=== PATIENT | female | born 1995 | race Caucasian/White ===

== ENCOUNTER 2024-10-17 12:14 | Inpatient (IN) | payer SELFPAY ==
[2024-10-17 12:22] VITALS: BP 151/83; PULSE 114; TEMP 36.8; O2SAT 99; BMI 33.0
--- OUTSIDE RECORDS SUMMARY | 2024-10-17 12:22 | XMS_ITS | Clinical Summary ---
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
--- OUTSIDE RECORDS SUMMARY | 2024-10-17 12:22 | XMS_ITS | Clinical Summary ---
[facility] Address [address] [address] Phone Care Team Providers Care Ruby Developer Name Role Phone Deepti Castle MD Primary Care Provider [phone] Allergies No known active allergies Medications multivitamin (DAILY-BRAXTON) tablet Take 1 Tab by mouth daily. Active SODIUM CL/POTASSIUM CHLORIDE (BUFFERED SALT ORAL) Take 1 Tab by mouth daily. Active acetaminophen (TYLENOL) 500 mg tablet Take 1,000 mg by mouth every 6 hours as needed. Active ibuprofen (MOTRIN) 200 mg tablet Take 400 mg by mouth every 6 hours as needed for Pain, Mild. Active azithromycin (ZITHROMAX) 500 mg tablet Take 1 Tab by mouth daily. 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 Pulse 83 02/25/2014 10:00 AM CNC SET UP OPERATOR Temperature 36.7 C (98.1 F) 02/25/2014 10:38 AM CNC SET UP OPERATOR Respiratory Rate 20 02/25/2014 11:20 AM CNC SET UP OPERATOR Oxygen Saturation 100% 02/25/2014 11:20 AM CNC SET UP OPERATOR Inhaled Oxygen Concentration - - Weight 49.4 kg (109 lb) 02/25/2014 8:58 AM CNC SET UP OPERATOR Height 160 cm (5' 3 ) 02/25/2014 8:58 AM CNC SET UP OPERATOR Body Mass Index 19.31 02/25/2014 8:58 AM CNC SET UP OPERATOR Plan of Treatment Health Maintenance Due Date Last Done Comments HPV VACCINES (1 - 3-dose series) 2012 DTAP/TDAP/TD VACCINES (1 - Tdap) 2016 HEPATITIS B VACCINES (1 of 3 - 19+ 3-dose series) 08/2016 CERVICAL CANCER SCREENING 2018 HPV/Cotest (21-29) 2018 PAP SMEAR 2018 INFLUENZA VACCINE (#1) 2024 Insurance [address] [place] [id number] [place] Care Teams Ruby Developer Relationship Specialty Start Date End Date Deepti Caslte MD [address] [place] [address] PCP - General Family Practice 02/25/14
[2024-10-17 12:32] LABS: Hematocrit 44.1 % (36-47); Hemoglobin 14.60 g/dL (11.27-16.99); Mean Corpuscular HGB Conc 33.1 g/dL (30-55); Mean Corpuscular Hemoglobin 29.5 pg (27-33); Mean Corpuscular Volume 89.1 fl (85-98); Nucleated Red Blood Cells % 0 %; Platelet Count 308 10^3/cmm (157-399); Red Blood Count 4.95 10^6/uL (3.85-5.65); White Blood Count 9.49 10^3/uL (3.29-11.43)
--- NOTE | 2024-10-17 12:42 | ED.C_ITS ---
HPI - Psych 2 General: Chief Complaint: Psychiatric Symptoms Stated Complaint: MHE Time Seen by Provider: 10/17/24 12:15 Source: patient Mode of arrival: ambulatory Limitations: no limitations History of Present Illness: 29-year-old female states that she has a history of bipolar disorder states she recently moved here has been feeling extremely paranoid states she been feeling people are out to get her she is going to get ambulation. She states she has been taking her home meds she denies SI or HI denies any worse improving factors. She states she is feels like she needs to be admitted to get some help. Related Data Allergies Allergy/AdvReac Type Severity Reaction Status Date / Time acetaminophen (From Percocet) Allergy Unknown Verified 10/17/24 12:30 oxycodone (From Percocet) Allergy Unknown Verified 10/17/24 12:30 Review of Systems 2 Const: Denies: fever(s), chills, body aches or change in appetite ENMT: Denies: throat pain or dental pain Card: Denies: chest pain Resp: Denies: dyspnea GI: Denies: abdominal pain, nausea, vomiting or diarrhea Musc: Denies: neck pain or back pain Skin/Breast: Denies: rash Neuro: Denies: headache(s) Psych: Reports: anxiety and paranoia Physical Exam 2 Const: COMMON NORMALS: no acute distress, patient oriented x3 and healthy appearing HENMT: COMMON NORMALS: normocephalic and atraumatic HEAD & SCALP: n ormocephalic and atraumatic Eye: COMMON NORMALS: conjunctivae normal CONJUNCTIVA: Yes conjunctivae normal Neck/C-Spine: COMMON NORMALS: full ROM and supple Chest: COMMONS NORMALS: normal inspection of the chest Resp: COMMON NORMALS: normal respiratory effort Cardio: COMMON NORMALS: regular rate RATE: regular rate Extremity: COMMON NORMALS: normal to inspection and full ROM Neuro: COMMON NORMALS: patient oriented x3, moves all extremities and no focal motor deficits Psych: COMMON NORMALS: mental status grossly normal, Normal thought process present and cooperative MOOD & AFFECT: Yes anxious THOUGHT PROCESS: Normal thought process present Skin: COMMON NORMALS: no rashes or lesions noted and no wounds GENERAL SKIN EXAM: no rashes or lesions noted Course 2 Vital Signs: Vital signs: Vital Signs Temperature 98.2 F 10/17/24 12:22 Pulse Rate 114 H 10/17/24 12:22 Blood Pressure 151/83 10/17/24 12:22 Pulse Oximetry 99 10/17/24 12:22 Oxygen Delivery Me thod Room Air 10/17/24 12:22 MDM - Psych Medical Decision Making Patient presents for paranoia. She is not suicidal or homicidal patient voluntarily wants to be admitted due to her paranoia I spoke to psychiatry she is medically cleared will admit at this time. Medical Records I reviewed the patient's medical records. Lab Data I reviewed the patient's lab results. 10/17/24 12:15 10/17/24 12:15 Laboratory Results WBC 9.49 10^3/uL (3.29-11.43) 10/17/24 12:15 RBC 4.95 10^6/uL (3.85-5.65) 10/17/24 12:15 Hgb 14.60 g/dL (11.27-16.99) 10/17/24 12:15 Hct 44.1 % (36-47) 10/17/24 12:15 MCV 89.1 fl (85-98) 10/17/24 12:15 MCH 29.5 pg (27-33) 10/17/24 12:15 MCHC 33.1 g/dL (30-55) 10/17/24 12:15 RDW 11.6 % (12.1-15.1) L 10/17/24 12:15 Plt Count 308 10^3/cmm (157-399) 10/17/24 12:15 MPV 10.4 fL (7.4-10.4) 10/17/24 12:15 Neut % (Auto) 72.1 % 10/17/24 12:15 Lymph % (Auto) 23.0 % 10/17/24 12:15 [place] % (Auto) 4.3 % 10/17/24 12:15 Eos % (Auto) 0.1 % 10/17/24 12:15 Baso % (Auto) 0.3 % 10/17/24 12:15 Neut # (Auto) 6.84 10^3/uL (1.8-7.7) 10/17/24 12:15 Lymph # (Auto) 2.2 10^3/uL (0.8-4.8) 10/17/24 12:15 [place] # (Auto) 0.4 10^3/uL (0.2-0.9) 10/17/24 12:15 Eos # (Auto) 0.0 10^3/uL (0.0-0.8) 10/17/24 12:15 Baso # (Auto) 0.0 10^3/uL (0.0-0.1) 10/17/24 12:15 Nucleated RBC % (auto) 0 % 10/17/24 12:15 Nucleated RBCs # 0.0 /100WBC 10/17/24 12:15 Sodium 134 mmol/L (136-145) L 10/17/24 12:15 Potassium 4.2 mmol/L (3.5-5.1) 10/17/24 12:15 Chloride 98 mmol/L (98-107) 10/17/24 12:15 Carbon Dioxide 19 mmol/L (22-29) L 10/17/24 12:15 Anion Gap 21.2 (5-19) H 10/17/24 12:15 BUN 6 mg/dL (6-20) 10/17/24 12:15 Creatinine 0.6 mg/dL (0.5-0.9) 10/17/24 12:15 GFR Calculation 119.9 mL/min (90-130) 10/17/24 12:15 Glucose 95 mg/dL (65-115) 10/17/24 12:15 Calculated Osmolality 275 mOsm/kg (285-295) L 10/17/24 12:15 Calcium 10.3 mg/dL (8.5-10.5) 10/17/24 12:15 Total Bilirubin 0.8 mg/dL (0.15-1.2) 10/17/24 12:15 AST 18 U/L (0-32) 10/17/24 12:15 ALT 15 U/L (0-33) 10/17/24 12:15 Alkaline Phosphatase 60 U/L (35-105) 10/17/24 12:15 Total Protein 8.6 g/dL (6.6-8.7) 10/17/24 12:15 Albumin 5.1 g/dL (3.5-5.2) 10/17/24 12:15 Globulin 3.5 g/dL (1.3-4.6) 10/17/24 12:15 HCG, Qual Negative (Negative) 10/17/24 12:50 Salicylates < 0.3 mg/dL (3-10) L 10/17/24 12:15 Acetaminophen < 5.0 ug/mL (10-30) L 10/17/24 12:15 Ethyl Alcohol < 10 mg/dL (0-10) 10/17/24 12:15 No radiology studies performed this visit Discharge Plan Discharge Patient Disposition: Admitted As Inpatient Clinical Impression: Paranoia Condition: Stable Coding Level of Care Code ED Technical Services Librarian for Jasmyn Castañeda
[2024-10-17 12:54] LABS: Alanine Aminotransferase 15 U/L (0-33); Albumin Level 5.1 g/dL (3.5-5.2); Alkaline Phosphatase 60 U/L (35-105); Anion Gap 21.2 (5-19); Aspartate Amino Transferase 18 U/L (0-32); Blood Urea Nitrogen 6 mg/dL (6-20); Calcium 10.3 mg/dL (8.5-10.5); Carbon Dioxide 19 mmol/L (22-29); Chloride 98 mmol/L (98-107); Creatinine Clr Calc Pharmacy 134.3624; Globulin 3.5 g/dL (1.3-4.6); Glucose 95 mg/dL (65-115); Osmolality Calculated 275 mOsm/kg (285-295); Potassium 4.2 mmol/L (3.5-5.1); Sodium 134 mmol/L (136-145); Total Protein 8.6 g/dL (6.6-8.7)
[2024-10-17 12:58] LABS: HCG Qualitative Urine. Negative (Negative)
[2024-10-17 12:58] LABS: Acetaminophen < 5.0 ug/mL (10-30); Alcohol Level < 10 mg/dL (0-10); Salicylate < 0.3 mg/dL (3-10)
[2024-10-17 13:25] VITALS: RESP 18; O2SAT 98
[2024-10-17 13:44] LABS: PCP Screen Urine Negative (Negative)
--- NOTE | 2024-10-17 13:48 | PC.PHAR ---
Medication information obtained by calling pts' pharmacy in [place]. [facility] [address], [place] [phone]. Pt states she took her medications today.
[2024-10-17 14:32] VITALS: BP 145/82; PULSE 121; RESP 16; TEMP 37.2; O2SAT 100
[2024-10-17 14:36] VITALS: BP 148/73; PULSE 103; O2SAT 98
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
--- NOTE | 2024-10-17 16:06 | PC.NURSE ---
Pt.'s friend Kathi came to visit today to visit and explained the living situation better. Pt. was living in [place] with her mother and sister sleeping on the couch. Kathi is a friend that went to school with pt. and they had been talking and pt. was going to move in with Kathi who lives in [facility]. Kathi and Pt. met on 10/16/24 in [place], [place] they went back to Kathi's home in [facility] when the friend Kathi realized the situation of pt.'s mental health and took pt. to the crisis center. The friend stated pt. had a recent medication change. The Seroquel was 25mg daily, but was changed to 100mg TID.
[2024-10-17 20:40] VITALS: BP 133/87; PULSE 103; RESP 18; O2SAT 94
[2024-10-18 06:00] VITALS: RESP 16
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
--- NOTE | 2024-10-18 07:24 | PC.NURSE ---
BEHAVIOR PATIENT HAS BEEN VERY TEARFUL THIS NIGHT. STATED SHE WAS HOMESICK, AND WANTED TO GO HOME. PATIENT WAS REASSURED THAT SOON THE DOCTOR THOUGHT SHE WOULD BE SAFE TO BE DISCHARGED, HE WOULD DISCHARGE HER. PATIENT THEN WAS ABLE TO SLEEP WELL AFTER TALKING TO STAFF.
[2024-10-18 14:00] VITALS: BP 99/63; PULSE 74; RESP 18; TEMP 37.3; O2SAT 96
[2024-10-18 19:59] VITALS: BP 113/75; PULSE 78; RESP 18; TEMP 37.6; O2SAT 95
--- NOTE | 2024-10-19 05:28 | PC.NURSE ---
REST PATIENT WAS UP ENTER-ACTING AND WATCHING TV WITH OTHER PATIENTS IN THE DAYROOM TILL AROUND 2200 LAST EVENING. SHE THEN RESTED VERY WELL THE REST OF THE NIGHT.
[2024-10-19 06:00] VITALS: BP 131/91; PULSE 84; RESP 17; TEMP 37; O2SAT 98
--- NOTE | 2024-10-19 11:55 | PC.NURSE ---
Pt.'s mother called gave information saying pt. was DX in the past wit compounded post traumatic stress syndrome and bi-polar, also said she had been in [facility] and [facility] in [place] for [facility] tx.
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
[2024-10-19 14:00] VITALS: BP 120/79; PULSE 119; RESP 17; TEMP 37; O2SAT 97
[2024-10-19 19:36] VITALS: BP 114/73; PULSE 100; RESP 18; TEMP 36.9; O2SAT 96
[2024-10-20 06:00] VITALS: RESP 16
[2024-10-20] MEDS: paliperidone ER 6 mg Tablet PO (08:17)
[2024-10-20 13:57] VITALS: BP 127/87; PULSE 107; RESP 16; TEMP 37.1; O2SAT 96
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
[2024-10-20] MEDS: blistex lip oint 7 gm Tube 1 APPLIC TOPICAL (18:20)
--- NOTE | 2024-10-20 19:21 | PC.NURSE ---
10/20/24 Alina Calderon et another patient were reminded that they were too close together et needed to separate some. Another staff member reported having to remind them during group as well.
[2024-10-20 20:19] VITALS: BP 125/89; PULSE 95; RESP 18; O2SAT 96
[2024-10-21 06:00] VITALS: BP 128/89; PULSE 116; RESP 18; TEMP 36.8; O2SAT 98
[2024-10-21] MEDS: blistex lip oint 7 gm Tube 1 APPLIC TOPICAL (07:59)
[2024-10-21] MEDS: paliperidone ER 6 mg Tablet PO (08:06)
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
[2024-10-21 14:00] VITALS: BP 138/91; PULSE 123; RESP 16; TEMP 36.3; O2SAT 96
[2024-10-21 20:12] VITALS: BP 126/90; PULSE 109; RESP 18; TEMP 36.8; O2SAT 96
[2024-10-22 06:00] VITALS: BP 133/89; PULSE 128; RESP 19; TEMP 37.1; O2SAT 98
[2024-10-22] MEDS: paliperidone ER 6 mg Tablet PO (08:23)
[2024-10-22] MEDS: blistex lip oint 7 gm Tube 1 APPLIC TOPICAL (10:48)
[2024-10-22 14:00] VITALS: BP 120/74; PULSE 109; RESP 16; TEMP 36.8; O2SAT 95
--- NOTE | 2024-10-22 17:19 | P.NPUPN_ITS ---
Mental Status Exam 2 [facility] Comments: Patient presented today reporting that she is feeling better overall. Staff reports she is being less isolative and engaging which was noted and direct observation as well. She endorsed feeling optimistic about a plan of her likely being discharged by Thursday. She denied any side effects to her medication. Vitals/I&O/Wt Last Vital Signs Temp 98.2 F 10/22/24 14:00 Pulse 109 H 10/22/24 14:00 Resp 16 10/22/24 14:00 BP 120/74 10/22/24 14:00 Pulse Ox 95 10/22/24 14:00 O2 Del Method Room Air 10/22/24 14:00 Data NPU 10/17/24 12:15 10/17/24 12:15 A&P Assessment and plan 1. Paranoia: 2. Major depressive disorder, recurrent: 3. PTSD (post-traumatic stress disorder): 4. Borderline personality disorder: 5. Cannabis use disorder: 6. CAYETANO (generalized anxiety disorder): Plan: This is a 29-year-old white female with a long history of mental health treatment with multiple past hospitalizations who presents having recently moved to the area with a friend after being homeless and having a psychiatric breakdown leading to her being admitted on a 96-hour hold. Plan Initiated Invega 3 mg today with plan to increase to 6 mg tomorrow if tolerated. Will monitor response and adjust dosage as needed on a daily basis. 1. Continue current medication. Added Invega 3 mg p.o. daily. Increased to 6 mg. 2. Continue every 15 minute checks. 3. Encourage individual, group and milieu therapies. 4. Encourage sober living after discharge to the highest level of care to which she is willing to commit. 5. Obtain collateral information. 6. Evaluate against a backdrop of the 96-hour hold. PDMP PDMP Reviewed: Not Reviewed Involuntary Hold Information 2 Hold Status: Date/Time Hold Expires: voluntary Attestations NPU 2 Medical Necessity Statement*: Inpatient hospitalization is medically necessary and the clinically appropriate intervention at this time. We will monitor/initiate medications and make changes as indicated. Likely length of stay 1-3 days. Coding Level of Care Code Acute Code for [facility] Diagnoses Paranoia F22 Major depressive disorder, recurrent F33.9 PTSD (post-traumatic stress disorder) F43.10 Borderline personality disorder F60.3 Cannabis use disorder F12.90 CAYETANO (generalized anxiety disorder) F41.1
[2024-10-22 19:58] VITALS: BP 108/70; PULSE 127; RESP 18; O2SAT 96
[2024-10-23 06:00] VITALS: BP 155/89; PULSE 111; RESP 18; TEMP 36.6; O2SAT 98; BMI 32.5
[2024-10-23] MEDS: paliperidone ER 6 mg Tablet PO (08:21)
[2024-10-23 14:00] VITALS: BP 117/79; PULSE 126; RESP 16; TEMP 36.8; O2SAT 95
[2024-10-23] MEDS: blistex lip oint 7 gm Tube 1 APPLIC TOPICAL (14:08)
--- NOTE | 2024-10-23 17:23 | P.NPUPN_ITS ---
Subjective NPU 2 Subjective: Patient presented today reporting that things are going better. We discussed the likelihood of discharge by Thursday and she is going to explore how she is feeling to see if tomorrow would be better than Thursday as a discharge plan. Otherwise she reports feeling much better than the medication has been really helpful and she is really excited to have something that works as this has. She denied any side effects of medication and we discussed her and Dr. Germain making a decision about discharge after the meet tomorrow. Mental Status Exam 2 MSE Comments: This is an overweight versus obese white female in hospital scrubs with limited grooming and eye contact. No abnormal movements except for mild psychomotor retardation. Cooperative with exam in mild distress. Speech was more spontaneous and slightly decreased rate and volume. Mood described as better, affect congruent and brighter. Thought process linear. Thought content: Patient denied suicidal or homicidal ideation, there were no delusions reported or noted, she denied auditory or visual hallucinations. Attention and concentration were limited and memory was somewhat reliable but none were formally tested. She is alert and oriented x 3. Insight and judgment improving and impulse control limited but improving. Vitals/I&O/Wt Last Vital Signs Temp 98.2 F 10/23/24 14:00 Pulse 126 H 10/23/24 14:00 Resp 16 10/23/24 14:00 BP 117/79 10/23/24 14:00 Pulse Ox 95 10/23/24 14:00 O2 Del Method Room Air 10/23/24 14:00 Weight last 48 hrs Weight 78.131 kg Data NPU 10/17/24 12:15 10/17/24 12:15 A&P Assessment and plan 1. Paranoia: 2. Major depressive disorder, recurrent: 3. PTSD (post-traumatic stress disorder): 4. Borderline personality disorder: 5. Cannabis use disorder: 6. CAYETANO (generalized anxiety disorder): Plan: This is a 29-year-old white female with a long history of mental health treatment with multiple past hospitalizations who presents having recently moved to the area with a friend after being homeless and having a psychiatric breakdown leading to her being admitted on a 96-hour hold. Plan Initiated Invega 3 mg today with plan to increase to 6 mg tomorrow if tolerated. Will monitor response and adjust dosage as needed on a daily basis. 1. Continue current medication. Added Invega 3 mg p.o. daily. Increased to 6 mg. 2. Continue every 15 minute checks. 3. Encourage individual, group and milieu therapies. 4. Encourage sober living after discharge to the highest level of care to which she is willing to commit. 5. Obtain collateral information. 6. Evaluate against a backdrop of the 96-hour hold. PDMP PDMP Reviewed: Not Reviewed Involuntary Hold Information 2 Hold Status: Date/Time Hold Expires: voluntary Attestations NPU 2 Medical Necessity Statement*: Inpatient hospitalization is medically necessary and the clinically appropriate intervention at this time. We will monitor/initiate medications and make changes as indicated. Likely length of stay 1-3 days. Coding Level of Care Code Acute Code for g Fwd Diagnoses Paranoia F22 Major depressive disorder, recurrent F33.9 PTSD (post-traumatic stress disorder) F43.10 Borderline personality disorder F60.3 Cannabis use disorder F12.90 CAYETANO (generalized anxiety disorder) F41.1
--- NOTE | 2024-10-23 19:30 | PC.NURSE ---
pt phone call rigo called and was agitated about pt calling him and then not wanting to speak to him.
[2024-10-23 20:20] VITALS: BP 114/79; PULSE 150; RESP 18; TEMP 36.6; O2SAT 96
[2024-10-24 06:00] VITALS: BP 122/74; PULSE 156; RESP 18; TEMP 36.7; O2SAT 96
[2024-10-24] MEDS: paliperidone ER 6 mg Tablet PO (08:05)
[2024-10-24 14:00] VITALS: BP 121/78; PULSE 137; RESP 16; TEMP 36.7; O2SAT 96
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
[2024-10-24 15:31] VITALS: BP 121/78; PULSE 137; RESP 16; TEMP 36.7; O2SAT 96
--- NOTE | 2024-10-24 19:46 | PC.NURSE ---
DISCHARGE PATIENTS FRIEND HERE TO PICK PATIENT UP AT DISCHARGE. PATIENT DRESSED OUT INTO HER STREET CLOTHES, DISCHARGE PACKET EXPLAINED AND GIVEN TO PATIENT. PATIENT INVENTORIED HER BELONGINGS AND NOTED EVERYTHING WAS THERE. PATIENT SIGNED DISCHARGE PACKET AND ESCORTED OUT TO WAITING CAR PER HER FRIEND.
[2024-10-24 19:50] VITALS: BP 134/87; RESP 18; TEMP 36.5; O2SAT 97
== END 2024-10-24 19:45 | disposition home or self-care (01) | DRG 885 ==
LOC: ER 12:45 → NP 14:21
PROVIDERS: Admitting Provider Psychiatry & Neurology Psychiatry; Emergency Provider Emergency Medicine; Visit Provider Psychiatry & Neurology Psychiatry
DX: F22 Delusional disorders (principal); F33.9 Major depressive disorder, recurrent, unspecified; Z59.00 Homelessness unspecified; R45.851 Suicidal ideations; E66.9 Obesity, unspecified; Z68.32 Body mass index [BMI] 32.0-32.9, adult; F41.1 Generalized anxiety disorder; F43.10 Post-traumatic stress disorder, unspecified; F60.3 Borderline personality disorder; F12.90 Cannabis use, unspecified, uncomplicated; Z91.51 Personal history of suicidal behavior; F17.290 Nicotine dependence, other tobacco product, uncomplicated; Z81.1 Family history of alcohol abuse and dependence; Z81.8 Family history of other mental and behavioral disorders; Z62.812 Personal history of neglect in childhood; Z62.810 Personal history of physical and sexual abuse in childhood; Z62.811 Personal history of psychological abuse in childhood
CPT/HCPCS: 36415; 80053; 80306; 80307; 81025; 85025; 97150; 97165; 99285; J9999

== ENCOUNTER 2024-10-27 07:56 | Inpatient (IN) | payer SELFPAY ==
[2024-10-27 08:02] VITALS: BP 149/72; PULSE 112; RESP 16; TEMP 36.7; O2SAT 98; BMI 33.0
--- OUTSIDE RECORDS SUMMARY | 2024-10-27 08:04 | XMS_ITS | Clinical Summary ---
[facility] Address [address] [address] Phone Care Team Providers Care Bog Worker Name Role Phone Deepti Castle MD Primary Care Provider [phone] Allergies No known active allergies Medications multivitamin [...] Comments Blood Pressure 114/77 02/25/2014 11:20 AM LANDING GEAR MECHANIC Pulse 83 02/25/2014 10:00 AM LANDING GEAR MECHANIC Temperature 36.7 C (98.1 F) 02/25/2014 10:38 AM LANDING GEAR MECHANIC Respiratory Rate 20 02/25/2014 11:20 AM LANDING GEAR MECHANIC Oxygen Saturation 100% 02/25/2014 11:20 AM LANDING GEAR MECHANIC Inhaled Oxygen Concentration - - Weight 49.4 kg (109 lb) 02/25/2014 8:58 AM LANDING GEAR MECHANIC Height 160 cm (5' 3 ) 02/25/2014 8:58 AM LANDING GEAR MECHANIC Body Mass Index 19.31 02/25/2014 8:58 AM LANDING GEAR MECHANIC Plan of Treatment Health Maintenance Due Date Last Done Comments DTAP/TDAP/TD VACCINES (1 - Tdap) 2016 HEPATITIS B VACCINES (1 of 3 - 19+ 3-dose series) 08/2016 CERVICAL CANCER SCREENING 2018 HPV/Cotest (21-29) 2018 PAP SMEAR 2018 HPV VACCINES (1 - 3-dose SCDM series) 2024 INFLUENZA VACCINE (#1) 2024 Insurance [address] [place], [place] [id number] [place] [address] [place], [place] [id number] [place] Care Teams Bog Worker Relationship Specialty Start Date End Date Deepti Castle MD [address] [place] [address] PCP - General Family Practice 02/25/14
--- OUTSIDE RECORDS SUMMARY | 2024-10-27 08:04 | XMS_ITS | Clinical Summary ---
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
--- NOTE | 2024-10-27 08:13 | ED.C_ITS ---
HPI - Psych 2 General: Chief Complaint: Psychiatric Symptoms Stated Complaint: SI feels like she is a ghost Time Seen by Provider: 10/27/24 07:57 History of Present Illness: 29-year-old female presents emergency ro om with suicidal ideation. Patient states she feels like a ghost and that there is a demon inside of me. She is tearful. She verbalizes suicidal ideation. The patient was hospitalized earlier this month. At that time she was paranoid. She had no reported suicidal or homicidal ideation. She was discharged after 1 week. Her discharge was 3 days ago. Patient admits she did take start some new medications. She is taking them as prescribed. She states she has had these thoughts in the past. She has no specific plan Related Data Home Medications ?Medication ?Instructions ?Recorded ?Confirmed albuterol sulfate 90 mcg/actuation 2 puff inhalation . 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 10/17/24 10/17/24 Previous Rx's ?Medication ?Instructions ?Recorded bupropion HCl 300 mg 24 hr tablet, 300 mg PO QAM 30 da ys #30 tabs 10/24/24 extended release (Wellbutrin XL) duloxetine 20 mg capsule,delayed 20 mg PO DAILY 30 day s #30 caps 10/24/24 release paliperidone 6 mg tablet,extended 6 mg PO .at night 30 days #30 tabs 10/24/24 release 24 hr Allergies Allergy/AdvReac Type Severity Reaction Status Date / Time acetaminophen (From Percocet) Allergy Unknown Verified 10/17/24 12:30 oxycodone (From Percocet) Allergy Unknown Verified 10/17/24 12:30 Review of Systems 2 Const: Denies: fever(s) or chills Card: Denies: chest pain Resp: Denies: dyspnea GI: Denies: abdominal pain : Denies: dysuria, urinary frequency or urinary urgency Musc: Denies: neck pain or back pain Skin/Breast: Denies: rash Physical Exam 2 Const: COMMON NORMALS: no acute distress GENERAL APPEARANCE: cooperative and comfortable ORIENTATION/CONSCIOUSNESS: Yes awake, Yes oriented to person, Yes oriented to place and Yes oriented to time HENMT: COMMON NORMALS: normocephalic, atraumatic and hearing grossly normal bilaterally HEAD & SCALP: normocephalic and atraumatic Resp: COMMON NORMALS: normal respiratory effort, No retractions, No use of accessory muscles and clear to auscultation bilaterally AUSCULTATION: clear to auscultation bilaterally Cardio: COMMON NORMALS: regular rate, regular rhythm and No murmurs present (Cardio) RATE: regular rate RHYTHM: regular rhythm GI: COMMON NORMALS: Soft to palpation and No hepatosplenomegaly present A USCULTATION: Yes normoactive bowel sounds PALPATION: Yes Soft to palpation, No Tenderness to palpation present (GI), No Guarding due to palpation present (GI) and Yes No hepatosplenomegaly present Extremity: COMMON NORMALS: normal to inspection, capillary refill normal, no clubbing, cyanosis or edema, no calf tenderness and no pedal edema Neuro: SENSORIUM/ORIENTATION: Yes oriented to person, Yes oriented to place and Yes oriented to time Skin: COMMON NORMALS: no rashes or lesions noted GENERAL SKIN EXAM: no rashes or lesions noted Course 2 Vital Signs: Vital signs: Vital Signs Temperature 98.0 F 10/27/24 08:02 Pulse Rate 112 H 10/27/24 08:02 Respiratory Rate 16 10/27/24 08:02 Blood Pressure 149/72 10/27/24 08:02 Pulse Oximetry 98 10/27/24 08:02 Oxygen Delivery Me thod Room Air 10/27/24 08:02 MDM - Psych Medical Decision Making Discussed with Dr. Roman on-call for psychiatry will admit for suicidal ideation. Medical Records I reviewed the patient's medical records. Lab Data I reviewed the patient's lab results. 10/27/24 08:47 10/27/24 08:47 Laboratory Results WBC 5.29 10^3/uL (3.29-11.43) 10/27/24 08:47 RBC 4.68 10^6/uL (3.85-5.65) 10/27/24 08:47 Hgb 13.60 g/dL (11.27-16.99) 10/27/24 08:47 Hct 40.8 % (36-47) 10/27/24 08:47 MCV 87.2 fl (85-98) 10/27/24 08:47 MCH 29.1 pg (27-33) 10/27/24 08:47 MCHC 33.3 g/dL (30-55) 10/27/24 08:47 RDW 11.3 % (12.1-15.1) L 10/27/24 08:47 Plt Count 236 10^3/cmm (157-399) 10/27/24 08:47 MPV 10.4 fL (7.4-10.4) 10/27/24 08:47 Neut % (Auto) 60.5 % 10/27/24 08:47 Lymph % (Auto) 31.2 % 10/27/24 08:47 [place]hin % (Auto) 6.6 % 10/27/24 08:47 Eos % (Auto) 0.9 % 10/27/24 08:47 Baso % (Auto) 0.6 % 10/27/24 08:47 Neut # (Auto) 3.20 10^3/uL (1.8-7.7) 10/27/24 08:47 Lymph # (Auto) 1.7 10^3/uL (0.8-4.8) 10/27/24 08:47 [place]hin # (Auto) 0.4 10^3/uL (0.2-0.9) 10/27/24 08:47 Eos # (Auto) 0.1 10^3/uL (0.0-0.8) 10/27/24 08:47 Baso # (Auto) 0.0 10^3/uL (0.0-0.1) 10/27/24 08:47 Nucleated RBC % (auto) 0 % 10/27/24 08:47 Nucleated RBCs # 0.0 /100WBC 10/27/24 08:47 Sodium 138 mmol/L (136-145) 10/27/24 08:47 Potassium 4.0 mmol/L (3.5-5.1) 10/27/24 08:47 Chloride 103 mmol/L (98-107) 10/27/24 08:47 Carbon Dioxide 22 mmol/L (22-29) 10/27/24 08:47 Anion Gap 17.0 (5-19) 10/27/24 08:47 BUN 7 mg/dL (6-20) 10/27/24 08:47 Creatinine 0.7 mg/dL (0.5-0.9) 10/27/24 08:47 GFR Calculation 100.4 mL/min (90-130) 10/27/24 08:47 Glucose 109 mg/dL (65-115) 10/27/24 08:47 Calculated Osmolality 285 mOsm/kg (285-295) 10/27/24 08:47 Calcium 9.8 mg/dL (8.5-10.5) 10/27/24 08:47 Total Bilirubin 0.6 mg/dL (0.15-1.2) 10/27/24 08:47 AST 15 U/L (0-32) 10/27/24 08:47 ALT 13 U/L (0-33) 10/27/24 08:47 Alkaline Phosphatase 57 U/L (35-105) 10/27/24 08:47 Total Protein 7.3 g/dL (6.6-8.7) 10/27/24 08:47 Albumin 4.4 g/dL (3.5-5.2) 10/27/24 08:47 Globulin 2.9 g/dL (1.3-4.6) 10/27/24 08:47 HCG, Qual Negative (Negative) 10/27/24 08:47 Salicylates < 0.3 mg/dL (3-10) L 10/27/24 08:47 Urine Opiates Screen Negative ng/mL (Negative) 10/27/24 08:39 Acetaminophen < 5.0 ug/mL (10-30) L 10/27/24 08:47 Ur Barbiturates Screen Negative ng/mL (Negative) 10/27/24 08:39 Ur Phencyclidine Scrn Negative ng/mL (Negative) 10/27/24 08:39 Ur Amphetamines Screen Negative ng/mL (Negative) 10/27/24 08:39 U Benzodiazepines Scrn Negative ng/mL (Negative) 10/27/24 08:39 Urine Cocaine Screen Negative ng/mL (Negative) 10/27/24 08:39 U Marijuana (THC) Screen Positive ng/mL (Negative) H 10/27/24 08:39 No radiology studies performed this visit Discharge Plan Discharge Condition: Stable Coding Level of Care Code ED [employer]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
[2024-10-27 08:57] LABS: Hematocrit 40.8 % (36-47); Hemoglobin 13.60 g/dL (11.27-16.99); Mean Corpuscular HGB Conc 33.3 g/dL (30-55); Mean Corpuscular Hemoglobin 29.1 pg (27-33); Mean Corpuscular Volume 87.2 fl (85-98); Nucleated Red Blood Cells % 0 %; Platelet Count 236 10^3/cmm (157-399); Red Blood Count 4.68 10^6/uL (3.85-5.65); White Blood Count 5.29 10^3/uL (3.29-11.43)
[2024-10-27 09:10] LABS: PCP Screen Urine Negative (Negative)
[2024-10-27 09:15] LABS: Alanine Aminotransferase 13 U/L (0-33); Albumin Level 4.4 g/dL (3.5-5.2); Alkaline Phosphatase 57 U/L (35-105); Anion Gap 17.0 (5-19); Aspartate Amino Transferase 15 U/L (0-32); Blood Urea Nitrogen 7 mg/dL (6-20); Calcium 9.8 mg/dL (8.5-10.5); Carbon Dioxide 22 mmol/L (22-29); Chloride 103 mmol/L (98-107); Creatinine Clr Calc Pharmacy 115.1678; Globulin 2.9 g/dL (1.3-4.6); Glucose 109 mg/dL (65-115); Osmolality Calculated 285 mOsm/kg (285-295); Potassium 4.0 mmol/L (3.5-5.1); Sodium 138 mmol/L (136-145); Total Protein 7.3 g/dL (6.6-8.7)
[2024-10-27 09:16] LABS: Acetaminophen < 5.0 ug/mL (10-30); Salicylate < 0.3 mg/dL (3-10)
[2024-10-27 09:21] LABS: HCG, Serum Qual Negative (Negative)
--- NOTE | 2024-10-27 09:21 | PC.NURSE ---
Involuntary 96 hour hold rights read and reviewed with patient. Patient verbalized understandings and copy of rights given to patient. [employer] present during read of rights.
[2024-10-27 09:33] VITALS: BP 123/82; PULSE 107; O2SAT 96
[2024-10-27 10:34] VITALS: BP 129/87; PULSE 115; RESP 16; TEMP 37; O2SAT 97
[2024-10-27 14:00] VITALS: BP 122/86; PULSE 128; RESP 16; TEMP 36.7; O2SAT 99
--- NOTE | 2024-10-27 14:26 | PC.ADMIT ---
[address] Admission Note:Pt was brought to the ER by a friend. She reported to ED nurses that she was feeling suicidal, she feels like a ghost and feels like there is a demon inside her. They states that she was very tearful and pacing around her room. She was given Ativan 2mg PO. She was noted to be + for THC. She has been placed on a 96 hour hold. Pt arrived to the unit at 0953 without incident. She is calm and cooperative while being changed out and during the assessment. She states that she feels like she has DID and she just feels weird. States that she endured a lot of trauma as a child. She states that lately she gets really angry when she thins about all her past trauma then it's like her brain starts erasing things. She states that she is actually losing time when she gets angry. She has frequent racing thoughts. She states that this is all making her feel suicidal. The patient,Yumiko Gee,29 y/o, was given written information regarding hospital policies, unit procedures and contact persons. Patient's smoking status: . Vital Signs - 8 hr 10/27/24 08:02 10/27/24 09:33 10/27/24 10:34 Temperature 98.0 F 98.6 F Pulse Rate 112 H 107 H 115 H Respiratory Rate 16 16 Blood Pressure 149/72 123/82 129/87 Pulse Oximetry 98 96 97 Oxygen Delivery Method Room Air Room Air 10/27/24 10:37 10/27/24 14:00 Temperature 98.1 F Pulse Rate 128 H Respiratory Rate 16 Blood Pressure 122/86 Pulse Oximetry 99 Oxygen Delivery Method Room Air Room Air
[2024-10-27 19:57] VITALS: BP 117/70; PULSE 98; RESP 18; TEMP 37; O2SAT 97
[2024-10-27] MEDS: paliperidone ER 6 mg Tablet PO (22:18)
[2024-10-28 06:00] VITALS: BP 111/73; PULSE 120; RESP 18; TEMP 36.9; O2SAT 94
--- NOTE | 2024-10-28 06:42 | PC.NURSE ---
pt pulse elevated, nurse aware
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
--- NOTE | 2024-10-28 11:44 | PC.NURSE ---
Pt mother called and wanted to give us names and phone numbers of other psych providers and facilities the pt has been to. [facility] she sees nurse practitioner Carolina Li phone number [phone] Miller at [facility] phone number [phone] [facility] in [place] phone number [phone] She states that she has a dx of Bipolar. Mother states that she wanted to give us those numbers in case we could get her to sign a release and get those records to help us better understand her childhood stuff better.
[2024-10-28 13:10] VITALS: RESP 16; O2SAT 96
[2024-10-28 14:00] VITALS: BP 120/78; PULSE 117; RESP 16; TEMP 37.3; O2SAT 96
--- NOTE | 2024-10-28 15:18 | PC.NURSE ---
Patient request for prn medication for anxiety. Zyprexa 5 mg po given for this.
[2024-10-28] MEDS: DROSPIRENONE ETHINYL ESTRADIOL 1 EACH PO (17:06)
[2024-10-28 20:56] VITALS: BP 117/86; PULSE 136; RESP 20; TEMP 37.1; O2SAT 96
[2024-10-28] MEDS: paliperidone ER 6 mg Tablet PO (21:28)
[2024-10-29 06:00] VITALS: BP 129/90; PULSE 118; RESP 18; TEMP 38.1; O2SAT 96
--- NOTE | 2024-10-29 06:44 | PC.NURSE ---
pt drinkinjg hot beverage temp may be inaccurate, pulse high nurse aware
[2024-10-29] MEDS: DROSPIRENONE ETHINYL ESTRADIOL 1 EACH PO (07:49)
[2024-10-29 13:49] VITALS: BP 118/76; PULSE 103; RESP 16; TEMP 37.3; O2SAT 97
--- NOTE | 2024-10-29 14:59 | P.NPUPN_ITS ---
Subjective NPU 2 Subjective: 29-year-old female with a history of psy chosis along with depression admitted with continued depression, suicidal ideation, and auditory hallucinations. She continues to report that she was feeling worse. She had reported that she was hearing voices and stated that nothing had helped her in the past. She had continued to report worried that she would be like her sister who had been previously diagnosed with schizophrenia. Patient had continued to report that she felt like she was being haunted. She had continued to report paranoia. She had reported a history of multiple medication trials without success. She had also reported a past history of PTSD symptoms and reported having recurring nightmares and flashbacks. She had reported some difficulties falling asleep. She continued to report having anxiety. She had been somewhat isolative on the milieu. She had endorsed some feelings of hopelessness. Mental Status Exam 2 MSE Comments: This is an average weight white female in hospital scrubs with fair grooming and good eye contact. No abnormal involuntary motor movements except for mild psychomotor retardation. She was cooperative on exam and moderate distress. Her speech was normal in rate, rhythm and prosody. Mood described as scared. Her affect was tearful and mood congruent. Thought process was linear. Thought content: Patient endorsed suicidal ideation with no active plan. She denied homicidal ideation. She endorsed delusions including being taken over by the devil. She endorsed auditory hallucinations and denied any visual hallucinations. She did not appear to be responding internal stimuli. She endorsed flashbacks and nightmares along with periods of confusion. Attention and concentration appeared grossly intact. She is alert and oriented x 3. Insight was poor. Her judgment and impulse control are limited. Vitals/I&O/Wt Last Vital Signs Temp 99.2 F 10/29/24 13:49 Pulse 103 H 10/29/24 13:49 Resp 16 10/29/24 13:49 BP 118/76 10/29/24 13:49 Pulse Ox 97 10/29/24 13:49 O2 Del Method Room Air 10/28/24 20:56 Data NPU 10/27/24 08:47 10/27/24 08:47 A&P Assessment and plan 1. Unspecified psychosis: 2. Auditory hallucinations: 3. Major depressive disorder, recurrent: 4. PTSD (post-traumatic stress disorder): 5. Borderline personality disorder: 6. Cannabis use disorder: 7. CAYETANO (generalized anxiety disorder): Plan: This is a 29-year-old white female with a long history of mental health treatment with multiple past hospitalizations readmitted after recent discharge 4 days ago with auditory hallucinations and suicidal ideation. Plan 1. Restart current medications. Continue invega 6mg at night, Invega 234mg IM today. Increase cymbalta to 30mg daily to target anxiety/depression. 2. Continue every 15 minute checks. 3. Encourage individual, group and milieu therapies. 4. Encourage sober living after discharge to the highest level of care to which she is willing to commit. 5. Obtain collateral information. 6. Evaluate against a backdrop of the 96-hour hold. PDMP PDMP Reviewed: Not Reviewed Involuntary Hold Information 2 Hold Status: Legal Status: 96 Hour Hold Date/Time Hold Expires: 0 11/03/24@0830 Attestations NPU 2 Medical Necessity Statement*: Inpatient hospitalization is medically necessary and the clinically appropriate intervention at this time. We will monitor/initiate medications and make changes as indicated. The patient's likely length of stay is 5 to 7 days. Coding Level of Care Code Acute Code for [facility] Fwd Diagnoses Unspecified psychosis F29 Auditory hallucinations R44.0 Major depressive disorder, recurrent F33.9 PTSD (post-traumatic stress disorder) F43.10 Borderline personality disorder F60.3 Cannabis use disorder F12.90 CAYETANO (generalized anxiety disorder) F41.1
[2024-10-29] MEDS: blistex lip oint 7 gm Tube 1 APPLIC TOPICAL (16:16)
[2024-10-29 20:00] VITALS: BMI 32.3
[2024-10-29 20:07] VITALS: BP 134/87; PULSE 111; RESP 18; TEMP 36.9; O2SAT 96
[2024-10-29] MEDS: paliperidone ER 6 mg Tablet PO (20:30)
[2024-10-30 06:00] VITALS: BP 122/94; PULSE 112; RESP 19; TEMP 37.2; O2SAT 98
--- NOTE | 2024-10-30 08:26 | NUR.SHIFT ---
Pt states that she slept great last night. She denies anxiety and rates her depression a 4/10. No reports of SI/HI or hallucinations. She reports bilateral foot pain a 3/10 and states this is arthritis that she has all the time. She cont to come up and ask staff off the wall questions like, am I or am I moving
[2024-10-30] MEDS: DROSPIRENONE ETHINYL ESTRADIOL 1 EACH PO (08:41)
[2024-10-30] MEDS: blistex lip oint 7 gm Tube 1 APPLIC TOPICAL (10:07)
--- NOTE | 2024-10-30 11:53 | PC.NURSE ---
Pt had pushed her door to where it was out in the be and her trash bag was out in the be. This nurse went down to room to check on pt and tell her that we need to keep the door pushed to the inside for fire safety purposes. She agreed, but never did look at me. As I walked by the paper bag to place it back in the room this nurse saw the patients prescription glasses all mangled in the bottom of the bag. I took the bag to the nurses station and attempted to mend them back. Shortly after Dr. Germain was in the room discussing with the pt her taking watermelon harvesting supervisor Invega. Pt got up and walked out of the room. Dr. Germain came to the nurses station and asked staff what has the pt upset. We attempted to speak with Yumiko who was sitting on the bench in front of the nurses station. She just spoke out and told Doc she would take the shot. The Dr knows best and all right Pt was asked what had her upset and she wouldn't answer. We then asked if it was a phone call that upset her and she said yes. She wouldn't given details to the phone call, but was very angry . She was moving around the nurses looking at other patients in a suspicious manner and moving around them as if the greatly dodge them. Dr. Germain stated that we need to give her something for her agitation and ordered Geodon 20mg PO and see if that would help her. As this nurse was writing this an Ralph RAILROAD FIRER/FIREMAN called myself and Rain COPELAND into the pt room. Pt was found standing up in her closet. Her mattress was off of her bed and she had papers ripped up and strewn about. Rain COPELAND found a long sleeve shirt thrown up and above the closet and her sheet tied in a knot. All bedding was removed from the room. Pt was found down in the foyer of [address] sitting in a chair. Myself, Rain COPELAND and security approached her to see if she wanted to accept an injection of Benadryl 50mg, Ativan 2mg, and Haldol 5mg IM to help her calm down. She said yes and led up to her room where she received her meds in her arms (see MAR). I asked pt if wanted us to stay and talk with her or be alone for a bit. She stated that she wants to be alone.
[2024-10-30] MEDS: LORazepam 1 MG/0.5 ML injection 2 MG IM (12:42)
[2024-10-30] MEDS: haloperidol inj 5 mg/mL INJ 1 mL IM (12:42)
[2024-10-30] MEDS: diphenhydrAMINE 50 mg/mL SDV 1mL IM (12:43)
--- NOTE | 2024-10-30 13:06 | P.NPUPN_ITS ---
Subjective NPU 2 Subjective: 29-year-old female with a history of psy chosis along with depression admitted with continued depression, suicidal ideation, and auditory hallucinations. Patient had asked staff today whether she was in [place] or [place]. She had appeared more upset had learning to find out that she was in [place]. She had endorsed continued confusion and appeared more agitated in the afternoon requiring additional as needed Geodon. She had continued report hearing voices and stated that she would like to consider taking the Invega shot. She continued to also report having difficulties with managing her past thoughts and reported mood instability and troubles with concentration. She had reported a prior history of abstinence from marijuana for 11 months and reported that previously she had felt better without the use of marijuana. The patient reported struggles with controlling her thoughts. Mental Status Exam 2 MSE Comments: This is an average weight white female in hospital scrubs with fair grooming and good eye contact. No abnormal involuntary motor movements except for mild psychomotor retardation. She was minimally cooperative on exam and moderate distress. Her speech was diminshed in rate, productivity and normal in volume. Mood described as not good. Her affect was more irritable. Thought process was linear. Thought content: Patient endorsed suicidal ideation with no active plan. She denied homicidal ideation. She endorsed auditory hallucinations and denied any visual hallucinations. She did appear to be responding internal stimuli. She endorsed flashbacks and nightmares along with periods of confusion. Attention and concentration appeared grossly intact. She is alert and oriented to person and place. Insight was poor. Her judgment and impulse control are limited. Vitals/I&O/Wt Last Vital Signs Temp 98.9 F 10/30/24 06:00 Pulse 112 H 10/30/24 06:00 Resp 19 H 10/30/24 06:00 BP 122/94 10/30/24 06:00 Pulse Ox 98 10/30/24 06:00 O2 Del Method Room Air 10/30/24 06:00 Weight last 48 hrs Weight 77.621 kg Data NPU 10/27/24 08:47 10/27/24 08:47 A&P Assessment and plan 1. Unspecified psychosis: 2. Auditory hallucinations: 3. Major depressive disorder, recurrent: 4. PTSD (post-traumatic stress disorder): 5. Borderline personality disorder: 6. Cannabis use disorder: 7. CAYETANO (generalized anxiety disorder): Plan: This is a 29-year-old white female with a long history of mental health treatment with multiple past hospitalizations readmitted after recent discharge 4 days ago with auditory hallucinations and suicidal ideation. Plan 1. Restart current medications. Continue invega 6mg at night, Invega 234mg IM given on 10/30/24. Continue cymbalta at 30mg daily to target anxiety/depression. 2. Continue every 15 minute checks. 3. Encourage individual, group and milieu therapies. 4. Encourage sober living after discharge to the highest level of care to which she is willing to commit. 5. Obtain collateral information. 6. Evaluate against a backdrop of the 96-hour hold. PDMP PDMP Reviewed: Not Reviewed Involuntary Hold Information 2 Hold Status: Legal Status: 96 Hour Hold Date/Time Hold Expires: 0 11/03/24@0830 Attestations NPU 2 Medical Necessity Statement*: Inpatient hospitalization is medically necessary and the clinically appropriate intervention at this time. We will monitor/initiate medications and make changes as indicated. The patient's likely length of stay is 5 to 7 days. Coding Level of Care Code Acute Code for [facility] Fwd Diagnoses Unspecified psychosis F29 Auditory hallucinations R44.0 Major depressive disorder, recurrent F33.9 PTSD (post-traumatic stress disorder) F43.10 Borderline personality disorder F60.3 Cannabis use disorder F12.90 CAYETANO (generalized anxiety disorder) F41.1
[2024-10-30 14:00] VITALS: BP 112/82; PULSE 112; RESP 19; TEMP 37; O2SAT 98
[2024-10-30] MEDS: paliperidone palmitate 234 mg Syringe IM (14:28)
[2024-10-30 19:56] VITALS: BP 117/83; PULSE 138; RESP 17; TEMP 37; O2SAT 98
[2024-10-30] MEDS: paliperidone ER 6 mg Tablet PO (20:27)
[2024-10-31 06:00] VITALS: BP 113/87; PULSE 137; RESP 18; TEMP 36.7; O2SAT 97
[2024-10-31] MEDS: DROSPIRENONE ETHINYL ESTRADIOL 1 EACH PO (08:14)
--- NOTE | 2024-10-31 12:23 | P.NPUPN_ITS ---
Subjective NPU 2 Subjective: 29-year-old female with a history of psy chosis along with depression admitted with continued depression, suicidal ideation, and auditory hallucinations. The patient had reported that she continued to be preoccupied by thoughts that she was crazy . She reports that she continued to feel paranoid stating that her mother wanted to control her and have her brought back to [place]. She had reported that she had become angry yesterday after a conversation where her mother had asked about whether she had a real ID as the patient had reported that she was concerned that she would be flown out of [place] and back to [place]. The patient had reported that she feels at times that she is a different person and endorsed having multiple personas including sunshine, shadow, and mom. The patient had reported that it was possible that sobriety off of marijuana may help with her problems as she had reported having 10 months of sobriety off marijuana with no improvement reported. She had reported having significant problems with mood dysregulation. She had endorsed having depressed mood frequently. Patient reported no side effects from the Invega shot. Mental Status Exam 2 MSE Comments: This is an average weight white female in hospital scrubs with fair grooming and good eye contact. No abnormal involuntary motor movements except for mild psychomotor retardation. She was cooperative on exam and mild to moderate distress. Her speech was normal in rate, productivity and normal in volume. Mood described as ok. Her affect was mood incongruent and labile. Thought process was linear. Thought content: Patient endorsed fleeting suicidal ideation with no active plan. She denied homicidal ideation. She endorsed hopelessness. She endorsed auditory hallucinations and denied any visual hallucinations. She did appear suspicious. She did not appear to be responding internal stimuli. She endorsed flashbacks and nightmares along with periods of confusion. Attention and concentration appeared grossly intact. She is alert and oriented to person and place. Insight was poor. Her judgment and impulse control are limited. Vitals/I&O/Wt Last Vital Signs Temp 98.0 F 10/31/24 06:00 Pulse 137 H 10/31/24 06:00 Resp 18 10/31/24 06:00 BP 113/87 10/31/24 06:00 Pulse Ox 97 10/31/24 06:00 O2 Del Method Room Air 10/31/24 06:00 Weight last 48 hrs Weight 77.621 kg Data NPU 10/27/24 08:47 10/27/24 08:47 A&P Assessment and plan 1. Unspecified psychosis: 2. Auditory hallucinations: 3. Major depressive disorder, recurrent: 4. PTSD (post-traumatic stress disorder): 5. Borderline personality disorder: 6. Cannabis use disorder: 7. CAYETANO (generalized anxiety disorder): Plan: This is a 29-year-old white female with a long history of mental health treatment with multiple past hospitalizations readmitted after recent discharge 4 days ago with auditory hallucinations and suicidal ideation. Plan 1. Continue invega 6mg at night, Invega 234mg IM given on 10/30/24. Continue Wellbutrin xl 300mg in am. Continue cymbalta at 30mg daily to target anxiety/depression. Geodon prn 20mg bid prn for agitation. 2. Continue every 15 minute checks. 3. Encourage individual, group and milieu therapies. 4. Encourage sober living after discharge to the highest level of care to which she is willing to commit. 5. Obtain collateral information. 6. Evaluate against a backdrop of the 96-hour hold. PDMP PDMP Reviewed: Not Reviewed Involuntary Hold Information 2 Hold Status: Legal Status: 96 Hour Hold Date/Time Hold Expires: 0 11/03/24@0830 Attestations NPU 2 Medical Necessity Statement*: Inpatient hospitalization is medically necessary and the clinically appropriate intervention at this time. We will monitor/initiate medications and make changes as indicated. The patient's likely length of stay is 5 to 7 days. Coding Level of Care Code Acute Code for [facility] Fwd Diagnoses Unspecified psychosis F29 Auditory hallucinations R44.0 Major depressive disorder, recurrent F33.9 PTSD (post-traumatic stress disorder) F43.10 Borderline personality disorder F60.3 Cannabis use disorder F12.90 CAYETANO (generalized anxiety disorder) F41.1
[2024-10-31 13:51] VITALS: BP 119/78; PULSE 107; RESP 16; O2SAT 97
[2024-10-31 19:55] VITALS: BP 125/77; PULSE 114; RESP 17; TEMP 36.7; O2SAT 96
[2024-10-31] MEDS: paliperidone ER 6 mg Tablet PO (20:14)
[2024-11-01 04:19] VITALS: BP 118/79; PULSE 87; RESP 16; TEMP 36.8; O2SAT 97
[2024-11-01] MEDS: DROSPIRENONE ETHINYL ESTRADIOL 1 EACH PO (08:46)
--- NOTE | 2024-11-01 09:02 | PC.NURSE ---
Patient's mom called the unit and spoke with this nurse. The mom stated Yumiko called me on the phone and was tearful telling me she could not sleep and was feeling increased paranoia and that the medications were not working well because she is not feeling based in reality . The mom stated that the pt feels embarrassed to tell staff her feelings/concerns. Moms (Deepti Gee) contact info: [phone]
[2024-11-01 14:00] VITALS: BP 114/65; PULSE 100; RESP 20; TEMP 37; O2SAT 97
--- NOTE | 2024-11-01 15:51 | P.NPUPN_ITS ---
Subjective NPU 2 Subjective: 29-year-old female with a history of psy chosis along with depression admitted with continued depression, suicidal ideation, and auditory hallucinations. The patient had requested numerous times that she needed something for her anxiety. She had expressed anxiety about going home to [place]. She had also reported no prior history of successfully living alone for a long period of time and stated that she would not be able to live with her friend in this area as her dogs and children would often trigger some of her PTSD symptoms particularly reporting being easily startled by loud noises and reporting having been attacked by dogs when she was younger. Patient had continued to report some concerns that she was losing her mind and stated that she continued to feel paranoid and suspicious that there was a plot against her. She had endorsed having multiple personalities. She had reported an extended history of mood dysregulation. She had reported no side effects from her current medication regimen. She denied any panic symptoms. She had appeared somewhat isolative on the milieu. She continued to report having flashbacks regarding trauma. She denied any thoughts of self injury. The patient had asked the nursing staff whether she was seeing things as she had stated that she struggled with knowing the difference between reality and fantasy. Mental Status Exam 2 MSE Comments: This is an average weight white female in hospital scrubs with fair grooming and good eye contact. No abnormal involuntary motor movements except for mild psychomotor retardation. She was cooperative on exam and mild to moderate distress. Her speech was normal in rate, productivity and normal in volume. Mood described as anxious. Her affect was mood congruent and anxious. Thought process was linear, logical and goal directed. Thought content: Patient denied any suicidal ideation with no active plan. She denied homicidal ideation. She endorsed hopelessness. She endorsed auditory hallucinations and denied any visual hallucinations. She endorsed paranoia. She did not appear to be responding internal stimuli. She endorsed flashbacks and nightmares along with periods of confusion. Attention and concentration appeared grossly intact. She is alert and oriented to person and place. Insight was poor. Her judgment and impulse control are limited. Vitals/I&O/Wt Last Vital Signs Temp 98.6 F 11/01/24 14:00 Pulse 100 11/01/24 14:00 Resp 20 H 11/01/24 14:00 BP 114/65 11/01/24 14:00 Pulse Ox 97 11/01/24 14:00 O2 Del Method Room Air 11/01/24 04:19 Data NPU 10/27/24 08:47 10/27/24 08:47 A&P Assessment and plan 1. Unspecified psychosis: 2. Auditory hallucinations: 3. Major depressive disorder, recurrent: 4. PTSD (post-traumatic stress disorder): 5. Borderline personality disorder: 6. Cannabis use disorder: 7. CAYETANO (generalized anxiety disorder): Plan: This is a 29-year-old white female with a long history of mental health treatment with multiple past hospitalizations readmitted after recent discharge 4 days ago with auditory hallucinations and suicidal ideation. Plan 1. Continue invega 6mg at night, Invega 234mg IM given on 10/30/24. Continue Wellbutrin xl 300mg in am. Continue cymbalta at 30mg daily to target anxiety/depression. Geodon prn 20mg bid prn for agitation. 2. Continue every 15 minute checks. 3. Encourage individual, group and milieu therapies. 4. Encourage sober living after discharge to the highest level of care to which she is willing to commit. 5. Obtain collateral information. 6. Evaluate against a backdrop of the 96-hour hold. 7. Disposition: consider dual diagnosis treatment program. PDMP PDMP Reviewed: Not Reviewed Involuntary Hold Information 2 Hold Status: Legal Status: 96 Hour Hold Date/Time Hold Expires: 0 11/03/24@0830 Attestations NPU 2 Medical Necessity Statement*: Inpatient hospitalization is medically necessary and the clinically appropriate intervention at this time. We will monitor/initiate medications and make changes as indicated. The patient's likely length of stay is 5 to 7 days. Coding Level of Care Code Acute Code for Chg Fwd Diagnoses Unspecified psychosis F29 Auditory hallucinations R44.0 Major depressive disorder, recurrent F33.9 PTSD (post-traumatic stress disorder) F43.10 Borderline personality disorder F60.3 Cannabis use disorder F12.90 CAYETANO (generalized anxiety disorder) F41.1
[2024-11-01 19:23] VITALS: BP 123/85; PULSE 109; RESP 16; TEMP 37.1; O2SAT 97
[2024-11-01] MEDS: paliperidone ER 6 mg Tablet PO (20:46)
[2024-11-02 06:00] VITALS: BP 130/85; PULSE 106; RESP 17; TEMP 37; O2SAT 97
[2024-11-02] MEDS: DROSPIRENONE ETHINYL ESTRADIOL 1 EACH PO (08:03)
[2024-11-02] MEDS: blistex lip oint 7 gm Tube 1 APPLIC TOPICAL (08:56)
--- NOTE | 2024-11-02 11:59 | PC.NURSE ---
Pt. signed in today.
--- NOTE | 2024-11-02 13:00 | PC.NURSE ---
Pt. came up to the nurses station and said to signee that she believed she had an eating disorder because she hated eating and drinking. Signee asked pt. if she was still eating and drinking and she replied yes. Pt. had a cup of coffee in her hand while talking to signee. Pt. was tearful when she stated this and said she needed help. Dr. Germain informed of what pt. said.
[2024-11-02 13:57] VITALS: BP 112/75; PULSE 100; RESP 18; TEMP 37.1; O2SAT 92
--- NOTE | 2024-11-02 16:56 | P.NPUPN_ITS ---
Subjective NPU 2 Subjective: 29-year-old female with a history of psy chosis along with depression admitted with continued depression, suicidal ideation, and auditory hallucinations. The patient had requested that she be allowed to consider returning to live with her friend here in [place]. She had reported that she had had some anxiety as it had triggered some of her PTSD symptoms. She had expressed anxiety about living in a half-way as she had not been successful at living independently in the past. She reported no suicidal thoughts but continued to report feeling worried. She had denied any hallucinations today and stated that she had felt that the Invega had been helpful at clearing her thoughts. She had reported a long history of mood swings and emotional dysregulation. She had continued to endorse some feelings of abandonment and stated that she continued to feel suspicious particularly towards her mother who she described as having been motivated in the past to show the world that Marimar was psychiatrically ill. The patient had reported some improved sleep last night. She had expressed interest in considering abstinence off of marijuana to see if it helped with reducing her anxiety overall. Mental Status Exam 2 MSE Comments: This is an average weight white female in hospital scrubs with fair grooming and good eye contact. No abnormal involuntary motor movements except for mild psychomotor retardation. She was cooperative on exam and mild to moderate distress. Her speech was normal in rate, productivity and normal in volume. Mood described as okay. Her affect was mood incongruent and labile. Thought process was linear, logical and goal directed. Thought content: Patient denied any suicidal ideation with no active plan. She denied homicidal ideation. She endorsed some hopelessness. She denied auditory hallucinations and denied any visual hallucinations. She endorsed paranoia. She did not appear to be responding internal stimuli. She endorsed flashbacks and nightmares along with periods of confusion. Attention and concentration appeared grossly intact. She is alert and oriented to person and place. Insight was poor. Her judgment and impulse control are limited. Vitals/I&O/Wt Last Vital Signs Temp 98.7 F 11/02/24 13:57 Pulse 100 11/02/24 13:57 Resp 18 11/02/24 13:57 BP 112/75 11/02/24 13:57 Pulse Ox 92 11/02/24 13:57 O2 Del Method Room Air 11/02/24 06:00 Data NPU 10/27/24 08:47 10/27/24 08:47 A&P Assessment and plan 1. Unspecified psychosis: 2. Auditory hallucinations: 3. Major depressive disorder, recurrent: 4. PTSD (post-traumatic stress disorder): 5. Borderline personality disorder: 6. Cannabis use disorder: 7. CAYETANO (generalized anxiety disorder): Plan: This is a 29-year-old white female with a long history of mental health treatment with multiple past hospitalizations readmitted after recent discharge 4 days ago with auditory hallucinations and suicidal ideation. Plan 1. Continue invega 6mg at night, Invega 234mg IM given on 10/30/24 with 156mg IM to be given on 11/04/24. Continue Wellbutrin xl 300mg in am. Continue cymbalta at 30mg daily to target anxiety/depression. Geodon prn 20mg bid prn for agitation. 2. Continue every 15 minute checks. 3. Encourage individual, group and milieu therapies. 4. Encourage sober living after discharge to the highest level of care to which she is willing to commit. 5. Obtain collateral information. 6. Evaluate against a backdrop of the 96-hour hold. 7. Disposition: consider dual diagnosis treatment program. PDMP PDMP Reviewed: Not Reviewed Involuntary Hold Information 2 Hold Status: Legal Status: 96 Hour Hold Date/Time Hold Expires: 0 11/03/24@0830 Attestations NPU 2 Medical Necessity Statement*: Inpatient hospitalization is medically necessary and the clinically appropriate intervention at this time. We will monitor/initiate medications and make changes as indicated. The patient's likely length of stay is 2-3 days. Coding Level of Care Code Acute Code for [facility] Fwd Diagnoses Unspecified psychosis F29 Auditory hallucinations R44.0 Major depressive disorder, recurrent F33.9 PTSD (post-traumatic stress disorder) F43.10 Borderline personality disorder F60.3 Cannabis use disorder F12.90 CAYETANO (generalized anxiety disorder) F41.1
[2024-11-02] MEDS: paliperidone ER 6 mg Tablet PO (20:45)
[2024-11-02 21:16] VITALS: BP 125/83; PULSE 125; RESP 18; TEMP 36.8; O2SAT 98
[2024-11-03 06:00] VITALS: BP 117/79; PULSE 109; RESP 18; TEMP 37; O2SAT 96
[2024-11-03] MEDS: DROSPIRENONE ETHINYL ESTRADIOL 1 EACH PO (08:08)
[2024-11-03 14:00] VITALS: BP 140/94; PULSE 119; RESP 16; TEMP 36.8; O2SAT 96
[2024-11-03] MEDS: blistex lip oint 7 gm Tube 1 APPLIC TOPICAL (15:00)
--- NOTE | 2024-11-03 17:36 | P.NPUPN_ITS ---
Subjective NPU 2 Subjective: 29-year-old female with a history of psy chosis along with depression admitted with continued depression, suicidal ideation, and auditory hallucinations. The patient had reported that she was feeling better today. She had expressed interest in returning to live with her friend Kathi instead of living at a senior living. She was able to attend groups and reported feeling less confused. She had continued to express worry that she was crazy . She continued to report improved sleep. She had reported feeling less angry and irritable. She had denied hearing any voices currently at this time. Mental Status Exam 2 MSE Comments: This is an average weight white female in hospital scrubs with fair grooming and good eye contact. No abnormal involuntary motor movements except for mild psychomotor retardation. She was cooperative on exam and mild to moderate distress. Her speech was normal in rate, productivity and normal in volume. Mood described as good. Her affect was odd and subdued today. Thought process was linear, logical and goal directed. Thought content: Patient denied any suicidal ideation with no active plan. She denied homicidal ideation. She endorsed some hopelessness. She denied auditory hallucinations and denied any visual hallucinations. She endorsed paranoia. She did not appear to be responding internal stimuli. She endorsed flashbacks and nightmares along with periods of confusion. Attention and concentration appeared grossly intact. She is alert and oriented to person and place. Insight was poor. Her judgment and impulse control are limited. Vitals/I&O/Wt Last Vital Signs Temp 98.3 F 11/03/24 14:00 Pulse 119 H 11/03/24 14:00 Resp 16 11/03/24 14:00 BP 140/94 11/03/24 14:00 Pulse Ox 96 11/03/24 14:00 O2 Del Method Room Air 11/03/24 14:00 Data NPU 10/27/24 08:47 10/27/24 08:47 A&P Assessment and plan 1. Unspecified psychosis: 2. Auditory hallucinations: 3. Major depressive disorder, recurrent: 4. PTSD (post-traumatic stress disorder): 5. Borderline personality disorder: 6. Cannabis use disorder: 7. CAYETANO (generalized anxiety disorder): Plan: This is a 29-year-old white female with a long history of mental health treatment with multiple past hospitalizations readmitted after recent discharge 4 days ago with auditory hallucinations and suicidal ideation. Plan 1. Reduce invega to 3mg at night, Invega 234mg IM given on 10/30/24 with 156mg IM to be given on 11/04/24. Continue Wellbutrin xl 300mg in am. Continue cymbalta at 30mg daily to target anxiety/depression. Geodon prn 20mg bid prn for agitation. 2. Continue every 15 minute checks. 3. Encourage individual, group and milieu therapies. 4. Encourage sober living after discharge to the highest level of care to which she is willing to commit. 5. Obtain collateral information. 6. Likely discharge tommorow. PDMP PDMP Reviewed: Not Reviewed Involuntary Hold Information 2 Hold Status: Legal Status: 96 Hour Hold Date/Time Hold Expires: 0 11/03/24@0830 Attestations NPU 2 Medical Necessity Statement*: Inpatient hospitalization is medically necessary and the clinically appropriate intervention at this time. We will monitor/initiate medications and make changes as indicated. The patient's likely length of stay is 1-2 days. Coding Level of Care Code Acute Code for g Fwd Diagnoses Unspecified psychosis F29 Auditory hallucinations R44.0 Major depressive disorder, recurrent F33.9 PTSD (post-traumatic stress disorder) F43.10 Borderline personality disorder F60.3 Cannabis use disorder F12.90 CAYETANO (generalized anxiety disorder) F41.1
[2024-11-03 20:15] VITALS: BP 127/82; PULSE 127; RESP 18; TEMP 36.7; O2SAT 97
[2024-11-04 06:00] VITALS: BP 118/76; PULSE 105; RESP 18; TEMP 37.6; O2SAT 97
[2024-11-04] MEDS: DROSPIRENONE ETHINYL ESTRADIOL 1 EACH PO (08:38)
--- NOTE | 2024-11-04 12:00 | NUR.SHIFT ---
Pt states that she slept decent. She rates her anxiety a 6/10, she verbalizes being unsure if she should d/c today or not. She is afraid that she may not be ready. She denies depression. No reports of SI/HI or hallucinations. She reports Lt foot pain of 4/10, but states this is normal with her arthritis. She was calm and cooperative on assessment. Pt mother called into the unit and verbalized she is unsure if Yumiko is ready to d/c. She states that she is still having some confusion when she talks to her on the phone and mood swings that she believes will be more difficult for her to manage outside of the unit.
[2024-11-04 14:00] VITALS: BP 123/84; PULSE 106; RESP 18; TEMP 36.8; O2SAT 97
--- NOTE | 2024-11-04 14:58 | P.NPUPN_ITS ---
Subjective NPU 2 Subjective: Patient presented today reporting things are going all right. She identified that she has had difficulty in managing the circumstances of her situation. Specifically she struggles with having anxiety that seems to come out of nowhere and the fairly debilitating. We discussed working over the weekend to figure out if there is some as needed medication that we can utilize to assist in that endeavor helping her manage her overwhelming anxiety we discussed the importance of avoiding adding new problems late those that would be possible brought to bear with the use of a benzodiazepine. She denies any side effects of the medication and reports that she is doing much better on the Invega and has gotten her second loading dose injection of 156 mg to the deltoid. Mental Status Exam 2 MSE Comments: This is an average weight white female in hospital scrubs with fair grooming and good eye contact. No abnormal involuntary motor movements except for mild psychomotor retardation. She was cooperative on exam and mild to moderate distress. Her speech was normal in rate, productivity and normal in volume. Mood described as good. Her affect was odd and subdued today. Thought process was linear, logical and goal directed. Thought content: Patient denied any suicidal ideation with no active plan. She denied homicidal ideation. She endorsed some hopelessness. She denied auditory hallucinations and denied any visual hallucinations. She endorsed paranoia. She did not appear to be responding internal stimuli. She endorsed flashbacks and nightmares along with periods of confusion. Attention and concentration appeared grossly intact. She is alert and oriented to person and place. Insight was poor. Her judgment and impulse control are limited. Vitals/I&O/Wt Last Vital Signs Temp 99.6 F 11/04/24 06:00 Pulse 105 H 11/04/24 06:00 Resp 18 11/04/24 06:00 BP 118/76 11/04/24 06:00 Pulse Ox 97 11/04/24 06:00 O2 Del Method Room Air 11/04/24 06:00 Data NPU 10/27/24 08:47 10/27/24 08:47 A&P Assessment and plan 1. Unspecified psychosis: 2. Auditory hallucinations: 3. Major depressive disorder, recurrent: 4. PTSD (post-traumatic stress disorder): 5. Borderline personality disorder: 6. Cannabis use disorder: 7. CAYETANO (generalized anxiety disorder): Plan: This is a 29-year-old white female with a long history of mental health treatment with multiple past hospitalizations readmitted after recent discharge 4 days ago with auditory hallucinations and suicidal ideation. Plan 1. Reduce invega to 3mg at night, Invega 234mg IM given on 10/30/24 with 156mg IM to be given on 11/04/24. Continue Wellbutrin xl 300mg in am. Continue cymbalta at 30mg daily to target anxiety/depression. Geodon prn 20mg bid prn for agitation. 2. Continue every 15 minute checks. 3. Encourage individual, group and milieu therapies. 4. Encourage sober living after discharge to the highest level of care to which she is willing to commit. 5. Obtain collateral information. 6. Likely discharge on Thursday as she continues to have difficulty with anxiety. PDMP PDMP Reviewed: Not Reviewed Involuntary Hold Information 2 Hold Status: Legal Status: 96 Hour Hold Date/Time Hold Expires: 0 11/03/24@0830 Attestations NPU 2 Medical Necessity Statement*: Inpatient hospitalization is medically necessary and the clinically appropriate intervention at this time. We will monitor/initiate medications and make changes as indicated. The patient's likely length of stay is 1-2 days. Coding Level of Care Code Acute Code for Chg Fwd Diagnoses Unspecified psychosis F29 Auditory hallucinations R44.0 Major depressive disorder, recurrent F33.9 PTSD (post-traumatic stress disorder) F43.10 Borderline personality disorder F60.3 Cannabis use disorder F12.90 CAYETANO (generalized anxiety disorder) F41.1
[2024-11-04] MEDS: paliperidone palmitate 156 mg Syringe IM (15:52)
[2024-11-04 20:42] VITALS: BP 119/68; PULSE 131; RESP 18; TEMP 36.6; O2SAT 100
[2024-11-05 06:00] VITALS: BP 116/77; PULSE 101; RESP 17; TEMP 37.2; O2SAT 97
[2024-11-05] MEDS: DROSPIRENONE ETHINYL ESTRADIOL 1 EACH PO (08:09)
--- NOTE | 2024-11-05 11:07 | NUR.SHIFT ---
Pt states that she slept good last night. She is rating her anxiety a 8/10 and depression a 0/10. No reports of SI/HI or hallucinations. She rates her Lt foot pain a 4/10 and states this is from arthritis. She is still very tearful and anxious this morning. At one point she was asking this nurse about asking the Dr if she could be tested for autism. I spoke with her mother after she got off the phone with her and she expressed concern that Yumiko doesn't seem ready for d/c just yet. She cont to tell her mother that she is scared to tell staff exactly how she is feeling. Also, Yumiko cont to tell her that something just feels off. Pt is calm and cooperative on assessment.
[2024-11-05 14:00] VITALS: BP 123/78; PULSE 108; RESP 16; TEMP 36.6; O2SAT 97
--- NOTE | 2024-11-05 19:41 | P.NPUPN_ITS ---
Subjective NPU 2 Subjective: Patient presented today reporting that things are going all right. He identified that she had a really rough day anxiety lizarraga and identified that the issue surrounds the fact that she is worried that she is going to mess things up when she leaves. We talked about the danger of causing bridges before you come to them and the way that that leads to you being punished twice or sometimes punished wants for something that never even is an issue. We discussed the importance of her focusing on managing challenges as they come and working with an outpatient team to get better at making adjustments to her behavior when it creates a problem in the relationship her situation. She denied any side effects to the medication. Mental Status Exam 2 MSE Comments: This is an average weight white female in hospital scrubs with fair grooming and good eye contact. No abnormal involuntary motor movements except for mild psychomotor retardation. She was cooperative on exam and mild to moderate distress. Her speech was normal in rate, productivity and normal in volume. Mood described as good. Her affect was odd and subdued today. Thought process was linear, logical and goal directed. Thought content: Patient denied any suicidal ideation with no active plan. She denied homicidal ideation. She endorsed some hopelessness. She denied auditory hallucinations and denied any visual hallucinations. She endorsed paranoia. She did not appear to be responding internal stimuli. She endorsed flashbacks and nightmares along with periods of confusion. Attention and concentration appeared grossly intact. She is alert and oriented to person and place. Insight was poor. Her judgment and impulse control are limited. Vitals/I&O/Wt Last Vital Signs Temp 98 F 11/05/24 14:00 Pulse 108 H 11/05/24 14:00 Resp 16 11/05/24 14:00 BP 123/78 11/05/24 14:00 Pulse Ox 97 11/05/24 14:00 O2 Del Method Room Air 11/05/24 14:00 Data NPU 10/27/24 08:47 10/27/24 08:47 A&P Assessment and plan 1. Unspecified psychosis: 2. Auditory hallucinations: 3. Major depressive disorder, recurrent: 4. PTSD (post-traumatic stress disorder): 5. Borderline personality disorder: 6. Cannabis use disorder: 7. CAYETANO (generalized anxiety disorder): Plan: This is a 29-year-old white female with a long history of mental health treatment with multiple past hospitalizations readmitted after recent discharge 4 days ago with auditory hallucinations and suicidal ideation. Plan 1. Reduce invega to 3mg at night, Invega 234mg IM given on 10/30/24 with 156mg IM to be given on 11/04/24. Continue Wellbutrin xl 300mg in am. Continue cymbalta at 30mg daily to target anxiety/depression. Geodon prn 20mg bid prn for agitation. 2. Continue every 15 minute checks. 3. Encourage individual, group and milieu therapies. 4. Encourage sober living after discharge to the highest level of care to which she is willing to commit. 5. Obtain collateral information. 6. Likely discharge on Thursday as she continues to have difficulty with anxiety. PDMP PDMP Reviewed: Not Reviewed Involuntary Hold Information 2 Hold Status: Legal Status: 96 Hour Hold Date/Time Hold Expires: 0 11/03/24@0830 Attestations NPU 2 Medical Necessity Statement*: Inpatient hospitalization is medically necessary and the clinically appropriate intervention at this time. We will monitor/initiate medications and make changes as indicated. The patient's likely length of stay is 1-2 days. Coding Level of Care Code Acute Code for Chg Fwd Diagnoses Unspecified psychosis F29 Auditory hallucinations R44.0 Major depressive disorder, recurrent F33.9 PTSD (post-traumatic stress disorder) F43.10 Borderline personality disorder F60.3 Cannabis use disorder F12.90 CAYETANO (generalized anxiety disorder) F41.1
[2024-11-05 20:24] VITALS: BP 117/77; PULSE 125; RESP 18; TEMP 36.7; O2SAT 95
[2024-11-06 06:00] VITALS: BP 118/83; PULSE 138; RESP 18; O2SAT 97; BMI 31.8
[2024-11-06] MEDS: DROSPIRENONE ETHINYL ESTRADIOL 1 EACH PO (08:27)
--- NOTE | 2024-11-06 09:06 | PC.NURSE ---
Pt has dry knuckles on bilateral hands and some areas are cracked open. Spoke with Dr. Daugherty and approved for pt to have aquaphor to apply to the dry areas. Ordered med.
--- NOTE | 2024-11-06 09:13 | NUR.SHIFT ---
Pt states that she slept alright last night. She rates her anxiety a 4/10 and depression a 1/10. No reports of SI/HI or hallucinations. She rates her Lt foot pain from arthritis, which is chronic, a 4/10. She asked this nurse about black stuff that she is coughing up out of her lungs. I instructed her to cough it up into a paper towel for us so we could better see what she has going on. She also showed me her knuckles on bilateral hands that are dry and cracked in areas she states that this is from washing her hands so much. I let her know I would speak with Dr. Daugherty about maybe getting her some aquaphor order to put on them. Pt was calm and cooperative during assessment.
[2024-11-06] MEDS: mineral oil-petrolat oint 106 gm 1 APPLIC TOPICAL ×2 (11:00→19:10)
[2024-11-06 14:00] VITALS: BP 125/82; PULSE 86; RESP 16; TEMP 36.8; O2SAT 98
--- NOTE | 2024-11-06 15:39 | PC.NURSE ---
Pt came to this nurse and stated that she wanted to be tested for HIV and other STD's. She states that she is just really worried about this as she has used IV drugs in the past. I spoke with Dr. Daugherty and he gave a verbal order for her to be tested for HIV, Hep C, and a urine STD panel (see orders).
--- NOTE | 2024-11-06 15:59 | P.NPUPN_ITS ---
Subjective NPU 2 Subjective: Patient presented today reporting that she is feeling better and a bit less anxious compared to yesterday. She reports that she is still somewhat anxious about discharge which we discussed would likely happen in the next 48 hours. We discussed the need for her to have resources like the crisis center that she can lean on when she is having a tough day and possibly have someone she could speak to on a regular basis. We also discussed the need for possible telephonic case manager. We agree would work with the social work team tomorrow to consider discharge and treatment moving forward. She denied any side effects to her medication. Mental Status Exam 2 MSE Comments: This is an average weight white female in hospital scrubs with fair grooming and good eye contact. No abnormal involuntary motor movements except for mild psychomotor retardation. She was cooperative on exam and mild distress. Her speech was normal in rate, productivity and normal in volume. Mood described as better than yesterday. Her affect was odd and subdued today, but less anxious appearing. Thought process was linear, logical and goal directed. Thought content: Patient denied any suicidal ideation with no active plan. She denied homicidal ideation. She endorsed some hopelessness. She denied auditory hallucinations and denied any visual hallucinations. She endorsed paranoia. She did not appear to be responding internal stimuli. She endorsed flashbacks and nightmares along with periods of confusion. Attention and concentration appeared grossly intact. She is alert and oriented to person and place. Insight was poor. Her judgment and impulse control are limited. Vitals/I&O/Wt Last Vital Signs Temp 98.3 F 11/06/24 14:00 Pulse 86 11/06/24 14:00 Resp 16 11/06/24 14:00 BP 125/82 11/06/24 14:00 Pulse Ox 98 11/06/24 14:00 O2 Del Method Room Air 11/06/24 14:00 Weight last 48 hrs Weight 76.317 kg Data NPU 10/27/24 08:47 10/27/24 08:47 A&P Assessment and plan 1. Unspecified psychosis: 2. Auditory hallucinations: 3. Major depressive disorder, recurrent: 4. PTSD (post-traumatic stress disorder): 5. Borderline personality disorder: 6. Cannabis use disorder: 7. CAYETANO (generalized anxiety disorder): Plan: This is a 29-year-old white female with a long history of mental health treatment with multiple past hospitalizations readmitted after recent discharge 4 days ago with auditory hallucinations and suicidal ideation. Plan 1. Reduce invega to 3mg at night, Invega 234mg IM given on 10/30/24 with 156mg IM to be given on 11/04/24. Continue Wellbutrin xl 300mg in am. Continue cymbalta at 30mg daily to target anxiety/depression. Geodon prn 20mg bid prn for agitation. 2. Continue every 15 minute checks. 3. Encourage individual, group and milieu therapies. 4. Encourage sober living after discharge to the highest level of care to which she is willing to commit. 5. Obtain collateral information. 6. Likely discharge on Thursday as she continues to have difficulty with anxiety. PDMP PDMP Reviewed: Not Reviewed Involuntary Hold Information 2 Hold Status: Legal Status: 96 Hour Hold Date/Time Hold Expires: 0 11/03/24@0830 Attestations NPU 2 Medical Necessity Statement*: Inpatient hospitalization is medically necessary and the clinically appropriate intervention at this time. We will monitor/initiate medications and make changes as indicated. The patient's likely length of stay is 1-2 days. Coding Level of Care Code Acute Code for Chg Fwd Diagnoses Unspecified psychosis F29 Auditory hallucinations R44.0 Major depressive disorder, recurrent F33.9 PTSD (post-traumatic stress disorder) F43.10 Borderline personality disorder F60.3 Cannabis use disorder F12.90 CAYETANO (generalized anxiety disorder) F41.1
--- NOTE | 2024-11-06 18:47 | PC.NURSE ---
Dr. Daugherty requested that when Yumiko ask for a PRN anxiety medication next that we try giving her the PRN Cogentin to see if maybe she is having trouble with EPS and not anxiety. I will pass this on to the next shift.
[2024-11-06] MEDS: blistex lip oint 7 gm Tube 1 APPLIC TOPICAL (19:06)
[2024-11-06 20:53] VITALS: BP 126/75; PULSE 120; RESP 18; TEMP 36.5; O2SAT 99
[2024-11-06 20:59] LABS: HIV 1 & 2 Antigen Non-Reactive (Non-Reactiv)
[2024-11-07 06:00] VITALS: BP 117/73; PULSE 104; RESP 16; TEMP 36.8; O2SAT 98
[2024-11-07] MEDS: blistex lip oint 7 gm Tube 1 APPLIC TOPICAL (07:24)
[2024-11-07] MEDS: DROSPIRENONE ETHINYL ESTRADIOL 1 EACH PO (08:05)
[2024-11-07 12:29] LABS: Trichomonas vaginalis (PCR) NOT DETECTED (Negative)
[2024-11-07 12:54] LABS: Neisseria Gonorrhea NOT DETECTED (Negative)
[2024-11-07 14:00] VITALS: BP 126/83; PULSE 100; RESP 18; TEMP 36.9; O2SAT 97
[2024-11-07 19:04] VITALS: BP 122/79; PULSE 107; RESP 18; TEMP 36.6; O2SAT 97
--- NOTE | 2024-11-07 19:29 | PC.NURSE ---
DISCHARGE PATIENT EDUCATED ON AND GIVEN DISCHARGE PAPERWORK. PATIENTS BELONGINGS INVENTORIED IN PRESENCE OF PATIENT AND FRIEND. PATIENT THEN DRESSED OUT INTO STREET [employer]OTHES AND RELEASED INTO FRIENDS CUSTODY FOR DISCHARGE AT THIS TIME.
== END 2024-11-07 19:30 | disposition home or self-care (01) | DRG 885 ==
LOC: ER 08:35 → NP 09:27
PROVIDERS: Psychiatry & Neurology Psychiatry; Admitting Provider Psychiatry & Neurology Psychiatry; Emergency Provider Family Medicine; Visit Provider Psychiatry & Neurology Psychiatry
DX: F33.9 Major depressive disorder, recurrent, unspecified (principal); R44.0 Auditory hallucinations; R45.851 Suicidal ideations; Z59.00 Homelessness unspecified; F43.10 Post-traumatic stress disorder, unspecified; F60.3 Borderline personality disorder; F12.90 Cannabis use, unspecified, uncomplicated; F41.1 Generalized anxiety disorder; Z91.51 Personal history of suicidal behavior; F17.290 Nicotine dependence, other tobacco product, uncomplicated; Z62.812 Personal history of neglect in childhood; Z62.810 Personal history of physical and sexual abuse in childhood; Z81.1 Family history of alcohol abuse and dependence; Z81.8 Family history of other mental and behavioral disorders; Z81.3 Family history of other psychoactive substance abuse and dependence; R45.1 Restlessness and agitation
CPT/HCPCS: 80053; 80306; 80307; 84703; 85025; 86803; 87491; 87591; 87661; 87806; 96372; 97150; 97165; 99285; J1200; J1630; J2060; J9999; Q0162